=== PATIENT | male | born 1985 | race Caucasian/White ===

== ENCOUNTER 2016-08-30 11:16 | Emergency (ER) | payer OTHER ==
[~2016-08-30] VITALS: Ht 185.4 cm; Wt 127.2 kg
[2016-08-30 12:16] LABS: HEMATOCRIT 42.6 % (38.0-50.0); MCH 26.5 PG (29.0-34.0); MCHC 34.3 G/DL (30.0-36.0); MCV 77.3 FL (86-99); MEAN PLAT.VOLUME 10.2 uM^3 (9.0-12.4); PLATELET COUNT 238 K/uL (156-360); RBC DIS.WIDTH-CV 14.2 % (11.8-14.6); RBC DIS.WIDTH-SD 39.3 % (39-53); RED BLOOD COUNT 5.51 M/uL (4.00-5.50); WHITE BLOOD COUNT 20.7 K/uL (4.1-10.2)
[2016-08-30 12:18] LABS: EOSINOPHIL (%) 1.6 % (0-5); EOSINOPHIL COUNT 0.3 K/uL (0-0.3); IMMATURE GRANULOCYTE (%) 0.2 % (0.0-0.7); IMMATURE GRANULOCYTE COUNT 0.5 K/uL; LYMPHOCYTE COUNT 1.9 K/uL (1.0-2.8); MONOCYTE (%) 9.8 % (3-12); NEUTROPHIL (%) 79.3 % (45-76); NEUTROPHIL COUNT 16.4 K/uL (1.8-6.4)
[2016-08-30 12:26] LABS: CHLORIDE 108 mEq/L (99-109); POTASSIUM 3.9 mEq/L (3.7-5.4); SODIUM 140 mEq/L (136-147)
[2016-08-30 12:27] LABS: GLUCOSE 106 mg/dL (70-99)
[2016-08-30 12:29] LABS: ANION GAP 11 MEQ/L (2-14)
[2016-08-30 12:31] LABS: GFR ESTIMATE (CALCULATED) > 59 mL/min/
[2016-08-30 12:32] LABS: UREA NITROGEN (BUN) 14 mg/dL (9-23)
[2016-08-30] MEDS ORDERED: CLINDAMYCIN HC300 MG PO (13:28)
[2016-08-30 14:21] VITALS: BP 135/88
== END 2016-08-30 14:22 ==
LOC: EME 11:16
PROVIDERS: Emergency Medicine
DX: L03.115 Cellulitis of right lower limb (principal); I10 Essential (primary) hypertension; B19.20 Unspecified viral hepatitis C without hepatic coma; Z86.14 Personal history of Methicillin resistant Staphylococcus aureus infection; Z87.891 Personal history of nicotine dependence
CPT/HCPCS: 76882; 80048; 85025; 87070; 87075; 87077; 87147; 87186; 87205; 99281; 99284; J1885